=== PATIENT | female | born 1970 | race Caucasian/White ===

== ENCOUNTER 2025-01-13 15:26 | Outpatient (AMB) | payer BC, SELFPAY ==
--- NOTE | 2025-01-13 15:28 | A.OFFVIS_ITS ---
Vital Signs 01/13/25 15:37 Height 5 ft 4 in Weight 187 lb BMI 32.1 BP 141/71 H Blood Pressure Location Lt brachial Position Sitting Pulse 66 Intake Visit Reasons: COLO SCREENING Intake Note: Patient new consult for 1st pre Colonoscopy screening. Patient cc: acid reflux on and off, denies any other GI issues. 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 Referred by PCP for pre colonoscopy screening This will be her first colonoscopy, and she has not had prior stool-based colorectal cancer screening. For the past year, she has experienced upper abdominal pain which she states can rise up into her chest and is not burning in nature. The pain can become severe enough to cause vomiting; she notes one episode where she vomited her breakfast at midnight, suggesting delayed digestion. She has found that stress reduction techniques, dietary mindfulness, and taking [id number] digestive enzymes helps alleviate her symptoms. A few years ago, she went to the hospital for severe pain, and scans of her pancreas were normal. The abdominal pain improved after she discontinued metformin. She also reports having constant heartburn which is exacerbated by stress and certain foods. She manages this with lifestyle modifications, including sleeping on an incline and dietary changes, as antacids have not been helpful. Within the last six months, she has had trouble swallowing, particularly pills and vitamins. Her bowel movements are once a day, and she feels she empties about 90% of the time. She denies blood in her stool but has noticed it from what she believes are hemorrhoids. Her stool pattern does not change when her stomach pain occurs. Her past medical history is significant for pre-diabetes, for which she took metformin for about a year. She has hypothyroidism and takes levothyroxine 12.5 mcg and Cytomel 25 mcg. She also takes progesterone 100 mg and reports a history of hormonal adjustments that led to a 30-pound weight gain, though her weight is now stable. She has a history of precancerous skin mole removal. She has allergies to penicillin, sulfa antibiotics, wheat, and chicken eggs, along with a gluten sensitivity. She reports severe claustrophobia and anxiety, and was told she was given Narcan to be woken up after sedation for a past MRI. Patient denies: fever/chills, appetite changes or unintentional wt loss. Social hx: -ETOH use, rare 1x Q 3m red wine -denies recreational drug use -non-smoker - family hx as below -denies personal hx of CA -denies significant cardiopulmonary history PFSH Medical History (Updated 01/13/25 @ 17:10 by Osiris Valentin CNP) Anxiety Acid reflux Epigastric pain Colon cancer screening Surgical History (Updated 01/13/25 @ 15:36 by Leonela Carbajal) Hx of sinus surgery Family History (Updated 01/13/25 @ 15:36 by Leonela Carbajal) Father Diverticulitis Social History (Updated 01/13/25 @ 15:35 by Leonela Carbajal) Household Members: Family Alcohol intake: never Patient Tobacco Use Status: Never used Tobacco Use of substances other than those prescribed or required for medical reasons: No Review of Systems Const Reports as per HPI ENT Reports as per HPI Card Reports as per HPI Resp Reports as per HPI GI Reports as per HPI Reports as per HPI Physical Exam Vital Signs: Last Vital Signs Pulse 66 01/13/25 15:37 BP 141/71 H 01/13/25 15:37 BMI result Body Mass Index 32.1 Const General: healthy appearing, no acute distress and well developed Nutritional Appearance: average body habitus Orientation/consciousness: patient oriented x3 HEENT Head: Yes normal to inspection, Yes normocephalic and Yes atraumatic Face and sinus: Yes normal facial exam Eyes General: appearance normal, both eyes and all related structures Neck Neck: Yes normal visual inspection Resp Effort & Inspection: normal respiratory effort, able to speak in complete sentences, no tracheal deviation and symmetric chest movement Cardio Jugular venous distension: no JVD GI Inspection: Yes normal to inspection, No distended and Yes obesity Palpation (GI): Soft to palpation, not firm, nontender and No hepatosplenomegaly present Auscultation: normal bowel sounds Neuro General: patient oriented x3 Gait exam (Neuro): Normal gait present Psych Appearance: grossly normal Mental Status: mental status grossly normal Speech and movement: Normal speech and movement present Affect: normal affect Attitude: cooperative Thought process: Normal thought process present Thought content: Normal thought content present Insight: Good insight present (Psych) Judgement: Good judgement present (Psych) Assessment & Plan Assessment & Plan (1) Colon cancer screening: Code(s): Z12.11 - Encounter for screening for malignant neoplasm of colon Category: Medical Plan: The patient will proceed with her first screening colonoscopy. Medications: -prescriptions for laxative tablets and miralax sent to pharmacy; instructions for Gatorade purchase and clear liquid diet given. Patient educated on scheduling process, procedure preparation, including avoiding certain foods and ensuring clear liquid intake Advised on necessity for ride post-procedure due to sedation. A follow-up visit will be scheduled for you after your procedure. (2) Epigastric pain: Code(s): R10.13 - Epigastric pain Category: Medical Plan: To further evaluate her symptoms of epigastric pain, reflux, nausea, and vomiting, an upper endoscopy will be performed at the same time as the colonoscopy. - An abdominal ultrasound will be ordered to rule out cholelithiasis or other gallbladder inflammation. - A gastric emptying study may be considered in the future, pending the results of the endoscopy. - patient to share copy of recent basic labs, including a CBC, CMP, and thyroid panel results via portal once engaged. (3) Acid reflux: Code(s): K21.9 - Gastro-esophageal reflux disease without esophagitis Category: Medical Qualifiers: Esophagitis presence: esophagitis presence not specified Qualified Code(s): K21.9 - Gastro-esophageal reflux disease without esophagitis Plan: The planned upper endoscopy will assess for any tissue changes in the esophagus resulting from chronic reflux. - The patient was advised to continue lifestyle modifications, including avoiding trigger foods, not overeating, and not lying down after meals. - She declined pharmacological management (4) Anxiety: Code(s): F41.9 - Anxiety disorder, unspecified Category: Medical Plan: Due to the patient's history of severe claustrophobia and procedural anxiety, a note was made that premedication may be beneficial. - She was advised not to take her personal anti-anxiety medication before the procedure to avoid interference with sedation. - She was reassured that the procedure room is an open environment. Plan Follow-up after endoscopy or sooner as needed Time: I spent a total of 45 minutes on the date of encounter which includes: Preparing to see the patient (reviewed previous documentation, test results and medical history) Performing a medically appropriate exam and/or evaluation Ordering medications, tests, and procedures Documenting clinical information in the health record Orders: Orders US abdomen complete Today R10.13 - Epigastric pain Referrals GI Procedure Notification K21.9 - Gastro-esophageal reflux disease without esophagitis, R10.13 - Epigastric pain, Z12.11 - Encounter for screening for malignant neoplasm of colon Medications: New bisacodyl take four tablets once day of colonoscopy prep 20 mg (4 x 5 mg) PO ONCE 4 tabs 0RF polyethylene glycol 3350 (Miralax) per colonoscopy prep instructions 238 grams PO ONCE 238 grams 0RF Coding Level of Care Code New Pt New Pt Level 4 (13802) Patient Type New Diagnoses Colon cancer screening Z12.11 Epigastric pain R10.13 Gastroesophageal reflux disease, unspecified whether esophagitis present K21.9 Esophagitis presence: esophagitis presence not specified Anxiety F41.9
[2025-01-13 15:37] VITALS: BP 141/71; PULSE 66; BMI 32.1
--- OUTSIDE RECORDS SUMMARY | 2025-01-13 22:06 | XMS_ITS | Clinical Summary ---
Author Organization [facility] Address [address] [place] [id number] Phone Care Team Providers Care Color Artist Name Role Phone Pcp, Not Required Primary Care Provider Unavaila ble Allergies Active Allergy Reactions Criticality Noted Date Comments Egg 02/16/2022 Penicillins 02/16/2022 Other reaction(s): hives Sulfa (Sulfonamide Antibiotics) 02/16/2022 Medications levothyroxine (SYNTHROID,LEVO THROID) 25 MCG tablet Take 25 mcg by mouth every morning. Active LORazepam (ATIVAN) 1 MG tablet Take 1 mg by mouth 3 (three) times a day as needed. 01/08/2022 Active CYTOMEL 25 mcg tablet Take 25 mcg by mouth daily. 12/02/2021 Active multivitamins capsule Take 1 capsule by mouth daily. Active Lactobac no.41/Bifidobac t no.7 (PROBIOTIC-10 ORAL) Take by mouth. Active budesonide (PULMICORT) 0.5 mg/2 mL nebulizer solution MIX 2ML (1 AMPULE) WITH 8 OZ OF SALINE SOLUTION THEN IRRIGATE EACH NOSTRIL WITH 1/2 BOTTLE EVERY DAY 180 mL 1 09/04/2022 Active metFORMIN (GLUCOPHAGE) 500 MG tablet Take 500 mg by mouth 2 (two) times a day with meals. Active progesterone (PROMETRIUM) 100 mg capsule 03/28/2023 Acti ve estradioL (VIVELLE-DOT) 0.05 mg/24 hr 06/25/2023 Activ e Social History Tobacco Use Types Packs/Day Years Used Date Smoking Tobacco: Never Smokeless Tobacco: Never Tobacco Cessation:Counseling Given: Not Answered Alcohol Use Standard Drinks/Week Comments Never 0 (1 standard drink = 0.6 oz pur e alcohol) Education Answer Date Recorded Are you interested in more education? Not on arron e 06/03/2022 Are you concerned about learning? Not on file 06/03/2022 No 06/03/2022 No 06/03/2022 Digital Access Answer Date Recorded No 06/30/2022 No 06/30/2022 Reliable internet access at home? Not on file 06/30/2022 Device with a working camera? Not on file Intimate Partner Violence Answer Date R ecorded Are you denied basic needs s uch as food, clothing, or medical care? No 04/26/2022 In the past 12 months have y ou been in a relationship with a person who hurts, threatens, or tries to control you? No 04/26/2022 Are you denied basic needs s uch as food, clothing, or medical care? No 04/26/2022 In the past 12 months have y ou been in a relationship with a person who hurts, threatens, or tries to control you? No 04/26/2022 Comments No Sex and Gender Information Value Date Recorded Sex Assigned at Female 01/17/2022 2:05 PM EST Legal Sex Female 2:02 PM EST Gender Identity Female 01/17/2022 2:05 PM EST Sexual Orientation Straight 01/17/2022 2: 05 PM EST Last Filed Vital Signs Vital Sign Reading Time Taken Comments Blood Pressure 135/87 04/26/2022 11:03 AM EDT Pulse 77 04/26/2022 11:03 AM EDT Temperature 36.3 C (97.3 F) 04/26/2022 10:40 AM EDT Respiratory Rate 16 04/26/2022 11:03 AM EDT Oxygen Saturation 99% 04/26/2022 11:03 AM EDT Inhaled Oxygen Concentration - - Weight 86.2 kg (190 lb) 06/29/2023 8:44 AM EDT Height 162.6 cm (5' 4 ) 06/29/2023 8:44 AM EDT Body Mass Index 32.61 06/29/2023 8:44 AM EDT Plan of Treatment Health Maintenance Due Date Last Done Comments Adult Td,Tdap Booster 1970 CREATININE LEVEL 1972 LIPID PANEL 1972 TSH LEVEL 1972 DEPRESSION SCREENING 1984 HEPATITIS C SCREENING 01/03/1990 HIV ONE-TIME SCREENING (18-6 5 YEARS) 01/03/1990 PAP SMEAR 01/03/1993 SCREENING FOR DIABETES 01/03/2007 MAMMOGRAM 2012 COLOGUARD 01/03/2017 COLONOSCOPY 01/03/2017 COLORECTAL CANCER SCREENING 01/03/2017 FIT TEST 01/03/2017 FOBT 01/03/2017 SIGMOIDOSCOPY 01/03/2017 VIRTUAL COLONOSCOPY 01/03/2017 PNEUMOCOCCAL VACCINES (50+ y ears) (1 of 1 - PCV) 01/03/2022 ZOSTER VACCINES (1 of 2) 01/03/2022 INFLUENZA VACCINE (#1) 2024 COVID-19 VACCINE (1 - 2024-2 6 season) 2024 RSV VACCINE (1 - 1-dose 75+ series) 01/03/2047 SMOKING STATUS SCREENING (On ce After 26 Yrs) Completed 06/29/2023 HEPATITIS A VACCINES Aged Out No long er eligible based on patient's age to complete this topic HIB VACCINES Aged Out No longer eligi ble based on patient's age to complete this topic MENINGOCOCCAL VACCINES (ACWY) Aged Out No longer eligible based on patient's age to complete this topic MENINGOCOCCAL VACCINES (B) Aged Out N o longer eligible based on patient's age to complete this topic Medical Devices Not on file Insurance * Guarantor: Ariadne Mendoza Account Type Relation to Patient Date of Phone Billing Address Personal/Family Self 1970 [address] [place] [address] [facility] EPO * Guarantor: Ariadne Mendoza Account Type Relation to Patient Date of Phone Billing Address Personal/Family Self 1970 [address] [place], [place] [facility] PPO EPO * Guarantor: Ariadne Mendoza Account Type Relation to Patient Date of Phone Billing Address Personal/Family Self 1970 [address] [place], [place] [facility] PPO EPO * Guarantor: Ariadne Mendoza Account Type Relation to Patient Date of Phone Billing Address Personal/Family Self 1970 [address] [place], [place] [facility] PPO EPO * Guarantor: Ariadne Mendoza Account Type Relation to Patient Date of Phone Billing Address Personal/Family Self 1970 [address] [place], [place] [facility] PPO EPO * Guarantor: Ariadne Mendoza Account Type Relation to Patient Date of Phone Billing Address Personal/Family Self 1970 [address] [place] [address] [facility] PPO EPO Advance Directives For more information, please contact: [phone] (9AM - 5PM 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 It is not the complete legal health record.[facility]
--- OUTSIDE RECORDS SUMMARY | 2025-01-13 22:06 | XMS_ITS | Clinical Summary ---
Author Organization [facility] Address [address] [place] [address] Care Team Providers Care Market Intelligence Consultant Name Role Phone Pcp, No Primary Care Provider Unavailabl e Allergies No known active allergies Medications levothyroxine (SYNTHROID, LEVOTHROID) 25 MCG tablet Take 25 mcg by mouth daily on an empty stomach. Active liothyronine (CYTOMEL) 25 MCG tablet Take 25 mcg by mouth daily. Active Active Problems No known active problems Immunizations Immunization Administration Dates Next Due Influenza Inactivated/Split Preservative Free IM 12/28/2017(Deferred: Patient Refused) Social History Tobacco Use Types Packs/Day Years Used Date Smoking Tobacco: Never Smokeless Tobacco: Never Alcohol Use Standard Drinks/Week Comments No 0 (1 standard drink = 0.6 oz pur e alcohol) AUDIT-C Answer Date Recorded Frequency of Alcohol Consumption Never 12/28/2017 Average Number of Drinks Not on file 018 Frequency of Binge Drinking Not on file 12/07 Comments Unknown Sex and Gender Information Value Date Recorded Sex Assigned at Not on file Legal Sex Female 8:54 AM EST Gender Identity Not on file Sexual Orientation Not on file Last Filed Vital Signs Vital Sign Reading Time Taken Comments Blood Pressure 122/75 12/28/2017 9:06 AM EST Pulse 86 12/28/2017 9:06 AM EST Temperature 36.9 C (98.5 F) 12/28/2017 9:06 AM EST Respiratory Rate 16 12/28/2017 9:06 AM EST Oxygen Saturation 97% 12/28/2017 9:06 AM EST Inhaled Oxygen Concentration - - Weight - - Height - - Body Mass Index - - Plan of Treatment Health Maintenance Due Date Last Done Comments Hepatitis C Virus Screening 1970 HIV Screening 01/03/1985 DTaP/Tdap/Td Vaccines (1 - Tdap) 01/03/1991 Hepatitis B Vaccines (1 of 3 - 19+ 3-dose series) 12/07 Pap Smear (Ages 21-65) 01/03/1993 Mammogram 2012 Colonoscopy 01/03/2017 Pneumococcal Vaccines 50+ (1 of 1 - PCV) 01/03/2022 Zoster (Shingles) Vaccine (1 of 2) 01/03/2022 Influenza Vaccine 09/05/2024 COVID-19 Vaccine (1 - season) 2024 RSV Vaccine 50 years and old er and Patients (1 - 1-dose 75+ series) 01/03/[address] [facility] Care Teams Market Intelligence Consultant Relationship Specialty Start Date End Date Pcp, No PCP - General General Medicine 12/28/17
--- OUTSIDE RECORDS SUMMARY | 2025-01-13 22:06 | XMS_ITS | Encounter Summary ---
Author Organization [facility] Address [address] [place] [id number] Phone Care Team Providers Care Taper Machine Name Role Phone Charlotte Barcenas MD Primary Care Provide r Pcp, Not Required Primary Care Provider Unavaila ble Encounter Details Date Type Department Care Team (Late st Contact Info) Description 02/16/2022 Procedure Pass [facility] - [facility] [address] [place] [address] Social History Tobacco Use Types Packs/Day Years Used Date Smoking Tobacco: Never Smokeless Tobacco: Never Alcohol Use Standard Drinks/Week Comments Never 0 (1 standard drink = 0.6 oz pur e alcohol) Comments Unknown Sex and Gender Information Value Date Recorded Sex Assigned at Female 01/17/2022 2:05 PM EST Legal Sex Female 2:02 PM EST Gender Identity Female 01/17/2022 2:05 PM EST Sexual Orientation Straight 01/17/2022 2: 05 PM EST documented as of this encounter Plan of Treatment Not on file documented as of this encounter Visit Diagnoses Not on filedocumented in this encounter Care Teams Taper Machine Relationship Specialty Start Date End Date Charlotte Barcenas MD [address] [address] PCP - General Internal Medicine 01/17/22 08/29/22 Pcp, Not Required [address] [address] PCP - General 08/30/22 documented as of this encounter Additional Source Comments The information contained in this document represents components of the legal health record. It is not the complete legal health record.[facility]
--- OUTSIDE RECORDS SUMMARY | 2025-01-13 22:06 | XMS_ITS | Encounter Summary ---
Author Organization [facility] Address [address] [place] [phone] Phone Care Team Providers Care Vamp Presser Name Role Phone Charlotte Barcenas MD Primary Care Provide r Pcp, Not Required Primary Care Provider Unavaila ble Encounter Details Date Type Department Care Team (Late st Contact Info) Description 04/26/2022 Procedure Pass [facility] DEPT [address] [place] [address] Social History Tobacco Use Types Packs/Day Years Used Date Smoking Tobacco: Never Smokeless Tobacco: Never Alcohol Use Standard Drinks/Week Comments Never 0 (1 standard drink = 0.6 oz pur e alcohol) Intimate Partner Violence Answer Date R ecorded [...] on filedocumented in this encounter Care Teams Vamp Presser Relationship Specialty Start Date End Date Charlotte Barcenas MD [address] [address] PCP - General Internal Medicine 01/17/22 08/29/22 Pcp, Not Required [address] [address] PCP - General 08/30/22 documented as of this encounter Additional Source Comments The information contained in this document represents components of the legal health record. It is not the complete legal health record.[facility]
== END 2025-01-13 16:21 | disposition home or self-care (01) ==
LOC: HO.HGI 15:27
PROVIDERS: PCP Nurse Practitioner Gerontology; Visit Provider Nurse Practitioner Family
DX: Z01.818 Encounter for other preprocedural examination (principal); Z12.11 Encounter for screening for malignant neoplasm of colon; R10.13 Epigastric pain; K21.9 Gastro-esophageal reflux disease without esophagitis; F41.9 Anxiety disorder, unspecified
CPT/HCPCS: S0285